=== PATIENT | male | born 1940 | race Caucasian/White ===

== ENCOUNTER 2019-11-07 09:45 | Outpatient (CLI) | payer OTHER, SELFPAY ==
--- NOTE | 2019-11-07 09:53 | CT_ITS ---
WS: [id number] CT ABDOMEN PELVIS TECHNIQUE: Noncontrast CT of the abdomen and contrast-enhanced CT of the abdomen and pelvis with gutierrez nal and sagittal reformatted images. CLINICAL INFORMATION: MICROSCOPIC HEMATURI DLP: [id number] scans at [facility] use at least one of these dose optimization techniques: automat ed exposure control; mA and/or kV adjustment per patient size (includes targeted exams where dose is matched to clinical indication); or iterative reconstruction. FINDINGS: Normal hepatic parenchymal enhancement. Normal portal vein and splenic vein. A few low-attenuation le sions in the liver consistent with hepatic cysts. Normal gallbladder. Gastroesophageal junction is no rmal. Lung bases are well aerated. Spleen is normal. Adrenal glands are normal. Normal pancreas. Right ureter is decompressed. Left ilia l nonobstructing pelvic calculus measuring 10 mm. Left ureter is decompressed. Pelvic phleboliths. No rmal renal parenchymal enhancement. Normal excretion on the excretory images. Incidental pelvic phleb oliths. Normal caliber abdominal aorta. Aortic calcification. Enlarged prostate. Prior appendectomy. Fat-cont aining left inguinal hernia. CT/CT abdomen pelvis wo/w [id number] IMPRESSION: 1. No obstructing renal or ureteral calculi. 2. Nonobstructing left renal pelvic calculus measuring 9 mm. 3. Normal renal parenchymal enhancement and ureteral excretion. 4. Incidental hepatic cysts. 5. Normal caliber abdominal aorta. 6. Enlarged prostate. Recommend correlation PSA. 7. Incidental fat-containing left inguinal hernia.
[2019-11-07] MEDS: iohexol 300 mg/mL 50 mL Btl IV (10:07)
[2019-11-07 10:36] LABS: Blood Urea Nitrogen 18 mg/dL (8-23)
[2019-11-07] MEDS: iohexol 300 mg/mL 100 mL Btl IV (11:17)
== END 2019-11-07 09:46 | disposition home or self-care (01) ==
LOC: RAD 09:49
PROVIDERS: Family Provider Family Medicine Adult Medicine; PCP Family Medicine Adult Medicine; Visit Provider Nurse Practitioner Family
DX: N20.0 Calculus of kidney (principal); K76.89 Other specified diseases of liver; N40.0 Benign prostatic hyperplasia without lower urinary tract symptoms; K40.90 Unilateral inguinal hernia, without obstruction or gangrene, not specified as recurrent; R31.29 Other microscopic hematuria
CPT/HCPCS: 36415; 74178; 81001; 82565; 84520

== ENCOUNTER 2020-04-16 14:01 | Outpatient (CLI) | payer OTHER, SELFPAY ==
--- NOTE | 2020-04-16 14:00 | XR_ITS ---
WS: [id number] XR KUB [id number] REASON FOR EXAM: KIDNEY STONE FINDINGS: A large calculi seen in the mid portion of the left kidney measures 11.46 mm. The remaining abdomen shows nonspecific gas and fecal stasis. No obstructive changes. XR/XR KUB [id number] IMPRESSION: Staghorn calculus of the kidney. Left
== END 2020-04-16 14:02 | disposition home or self-care (01) ==
LOC: RAD 14:03
PROVIDERS: PCP Family Medicine Adult Medicine; Visit Provider Urology
DX: N20.0 Calculus of kidney (principal); R31.29 Other microscopic hematuria
CPT/HCPCS: 74018; 81001

== ENCOUNTER 2021-04-15 13:45 | Outpatient (CLI) | payer OTHER, SELFPAY ==
--- NOTE | 2021-04-15 13:30 | XR_ITS ---
WS: [id number] Exam: XR KUB [id number] Date/Time of Exam: 04/15/2021 1:58 PM Reason For Exam: N20.0 - Calculus of kidney Comparison 04/16/2020. 12 mm calcification superimposes the left kidney and apparently represents a large stone. This shows little change. No calcifications seen in the region of the right kidney. Nonspecific bilateral pelvic calcifications. No bowel obstruction or free air. Moderate amount stool in right colon. Visualized o rgan margins are intact. XR/XR KUB [id number] IMPRESSION: 1. 12 mm calcification superimposing the right kidney apparently representing t he patient's known renal stone. 2. No acute abdominal finding.
== END 2021-04-15 13:46 | disposition home or self-care (01) ==
LOC: RAD 13:47
PROVIDERS: PCP Family Medicine Adult Medicine; Visit Provider Urology
DX: N20.0 Calculus of kidney (principal)
CPT/HCPCS: 74018; 81003

== ENCOUNTER 2024-05-18 15:35 | Emergency (ER) | payer OTHER, MEDICARE, SELFPAY ==
[2024-05-18 15:45] VITALS: BP 169/87; PULSE 63; RESP 14; TEMP 37.1; O2SAT 98
--- NOTE | 2024-05-18 16:36 | W.ED.WOUNDLC ---
HPI - Wound/Laceration General: Chief Complaint: Wound/Laceration Stated Complaint: sent by nm, right fingers lac Time Seen by Provider: 05/18/24 16:27 History of Present Illness: Patient was working with his air compressor today when it became loose from his tool attachment causing him to whip around and strike him in the hand. Patient ended up with a laceration to the ulnar side of the middle finger approximately 3 cm along the PIP joint, patient also had a flap laceration to the proximal phalanx of the ring finger and an abrasion to the index finger PIP dorsal joint area. Patient tetanus is up-to-date. Patient was [facility] seen at the [facility] referred to the ER for further treatment. Patient has good range of motion of the extremity. No foreign body or fractures are noted. Review of Systems General: Reports: 10 or more systems reviewed and unremarkable except in HPI and below PFSH ED PFSH: Medical History (Updated 05/18/24 @ 17:14 by CHIP Ruiz) Renal calculus, left 10mm nonobstructing left renal stone identified on November 2019 CT scan. No change on follow-up imaging. Chose no treatment but agreed to follow-up Lower urinary tract symptoms Hematuria, microscopic Surgical History Status post appendectomy Family History Father , AT AGE 96 No problems noted. Mother CAD (coronary artery disease) Social History Smoking and tobacco/nicotine status: former use of tobacco/nicotine Alcohol intake: current Substance/Drug Use: unknown Adopted: No Caregiver/support person: No Lives independently: Yes Marital status: Current occupational status: retired Physical Exam Const: COMMON NORMALS: alert HENMT: COMMON NORMALS: normocephalic HEAD & SCALP: normocephalic Neck/C-Spine: COMMON NORMALS: full ROM Resp: COMMON NORMALS: normal respiratory effort and clear to auscultation bilaterally AUSCULTATION: clear to auscultation bilaterally Cardio: COMMON NORMALS: regular rate and regular rhythm RATE: regular rate RHYTHM: regular rhythm Back/Pelvis: COMMON NORMALS: thoracic and lumbar spine normal to inspection Extremity: RIGHT UPPER EXTREMITY: Yes hand & digits (Laceration abrasions fingers) Neuro: SENSORIUM/ORIENTATION: Yes alert Skin: TRAUMA: laceration (Right hand fingers) Procedures Laceration Laceration 1: Site: hand Side (If applicable): right Size (cm): 3 Depth: simple, single layer Local Anesthetic: lidocaine 2% and with epi Amount of anesthesia used (mL): 2 Pre-repair: wound explored and irrigated extensively Skin layer closed with: nylon Size (cm): 5-0 Number of sutures: 4 Technique: simple, interrupted Course Vital Signs: Vital signs: Vital Signs Temperature 98.7 F 05/18/24 15:45 Pulse Rate 63 05/18/24 17:19 Respiratory Rate 14 05/18/24 15:45 Blood Pressure 169/87 05/18/24 17:19 Pulse Oximetry 98 05/18/24 17:19 Oxygen Delivery Me thod Room Air 05/18/24 15:45 MDM - Wound/Laceration Medical Decision Making 83-year-old male patient comes in with injuries to the right hand fingers. Patient has a superficial abrasion to the index finger, laceration to the middle finger, and skin flap to the ring finger. Wounds were irrigated and cleaned. A Band-Aid was applied to the abrasion and the skin flap. Laceration to the middle finger was closed with four 5-0 sutures. Patient tolerated fair. No fracture or foreign bodies were noted in the wound. Differential diagnoses included but not limited to fracture, laceration, foreign body, tendon injury. No signs of serious injury was noted. Patient was discharged home with recommendations for follow-up. No radiology studies performed this visit Discharge Plan Discharge Patient Disposition: Home Clinical Impression: Laceration of finger Qualifiers: Encounter type: initial encounter Finger: middle finger Damage to nail status: without damage Foreign body presence: without foreign body Laterality: right Qualified Code(s): S61.212A - Laceration without foreign body of right middle finger without damage to nail, initial encounter Abrasion of finger of right hand Qualifiers: Encounter type: initial encounter Qualified Code(s): S60.419A - Abrasion of unspecified finger, initial encounter Condition: Stable Prescriptions: New amoxicillin-pot clavulanate 875-125 mg tablet 1 tab PO BID Qty: 14 0RF Discharge Orders: Discharge ED (Routine); Ordered 05/18/24 Ordered By: Raj Mullins Discharge Activity: Limit activity as instructed Patient Instructions: Finger Laceration (ED) Activity Restrictions/Additional Instructions: Keep wounds clean and dry. Limit activity to the hand until wounds are healed completely. It may take 7 to 10 days for the wounds to completely heal and then you can return back to normal activities. Sutures need to come out in 7 to 10 days. Take oral antibiotic for help prevention of infection. Follow-up with primary care in 1 week for recheck. Return to ED for new concerns. 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
[2024-05-18 17:19] VITALS: BP 169/87; PULSE 63; O2SAT 98
[2024-05-18] MEDS: amoxicillin-clav 875-125 mg Tablet 1 TAB PO (17:20)
== END 2024-05-18 17:26 | disposition home or self-care (01) ==
PROVIDERS: Emergency Provider Nurse Practitioner Family
DX: S61.212A Laceration without foreign body of right middle finger without damage to nail, initial encounter (principal); Z87.891 Personal history of nicotine dependence; W20.8XXA Other cause of strike by thrown, projected or falling object, initial encounter
CPT/HCPCS: 12002; 99283